=== PATIENT | female | born 1995 | race Caucasian/White ===

== ENCOUNTER 2016-08-12 10:59 | Emergency (ER) | payer BC ==
[~2016-08-12] VITALS: Ht 162.6 cm; Wt 57.6 kg
[~2016-08-12 10:59] MED LIST: AMOX500C3 PO; BCPILLS PO
[2016-08-12 11:03] VITALS: TEMP 36.9; Ht 162.6 cm; Wt 57.6 kg
[2016-08-12] MEDS ORDERED: DEXAMETHASONE CONC 1 MG/ML 30 ML PO STA ×2 (11:19→11:31)
[2016-08-12] MEDS ORDERED: FAMOTIDINE 20 MG TAB PO ONE (11:30)
[2016-08-12] MEDS ORDERED: CEPH500C PO (12:33)
[2016-08-12] MEDS ORDERED: CEPHALEXIN MONOHYDRATE 250 MG CAP PO ONE (12:45)
[2016-08-12 12:59] VITALS: BP 136/69; PULSE 74; O2SAT 99
--- NOTE | 2016-08-12 17:17 | EMERGENCY ROOM VISIT NOTE ---
History Report prepared by You: Hermilo Schwartz Under the Supervision of: Dr. Jack Barahona D.O. First contact with patient: 11:09 Chief Complaint: ALLERGIC REACTION Stated Complaint: TROUBLE BREATHING (ALLERGIC REACTION TO MACROBID) History of Present Illness The patient is a 20 year old female who presents to the Emergency Room with complaints of a constant allergic reaction starting last night around midnight when she took Macrobid. She states that she took Macrobid for a bladder infection starting two days ago, and last night she was having some shortness of breath and tightness in her chest. She states she went to sleep, and she woke up from not getting enough air while laying down, so she went back to sleep sitting upright. The patient states that she is sensitive to antibiotics, and she gets rashes to Bactrim and Malarone. She states that she additionally has a bicuspid aortic valve disease. She denies smoking, history of blood clots , hematemesis, recent long trips, and any trouble swallowing. Takes no estrogen. She denies any history of diabetes, hypertension, hyperlipidemia or CAD. She states that she does take control. The patient states that her last echo was in September, and it was normal. Pt denies headache, change in vision, fevers, nausea, vomiting, diarrhea, pain with urination, and melena. Source of History: patient Onset: last night around midnight Position: other (global) Quality: other (allergic reaction) Timing: constant Associated Symptoms: + SOB, + chest pain Review of Systems See HPI for pertinent positives & negatives. A total of 10 systems reviewed and were otherwise negative. Past Medical & Surgical Medical Problems: (1) (2) Bicuspid aortic valve Family History Heart disease Social History Smoking Status: Never Smoker Marital Status: single Housing Status: unknown Occupation Status: [email or web address] student Current/Historical Medications Scheduled Control Pills ( Control Pills), 1 TAB PO DAILY Cephalexin Monohydrate (Keflex), 500 MG PO QID Allergies Coded Allergies: Adhesives (Verified Allergy, Unknown, rash, 08/12/16) Atovaquone (Unverified Allergy, Unknown, rash all over , 08/12/16) Nitrofurantoin (Unverified Allergy, Unknown, difficulty breathing, chest feels heavy, 08/12/16) Proguanil (Unverified Allergy, Unknown, rash all over , 08/12/16) Sulfamethoxazole w/Trimethoprim (Unverified Allergy, Unknown, hives/ swelling, 08/12/16) Physical Exam Vital Signs Date Time Temp Pulse Resp B/P Pulse Ox O2 Delivery O2 Flow Rate FiO2 08/12/16 12:59 74 16 136/69 99 08/12/16 12:53 78 20 128/61 98 Room Air 08/12/16 12:05 73 16 111/77 97 Room Air 08/12/16 11:34 100 Room Air 08/12/16 11:03 36.9 88 18 136/92 100 Room Air Physical Exam GENERAL: Sitting up in bed, alert, well appearing, well nourished, no distress, non-toxic EYE EXAM: normal conjunctiva OROPHARYNX: no exudate, no erythema, lips, buccal mucosa, and tongue normal and mucous membranes are moist NECK: No stridor, supple, no nuchal rigidity, no adenopathy, non-tender LUNGS: Clear to auscultation. Normal chest wall mechanics HEART: Systolic murmur, S1 normal and S2 normal ABDOMEN: abdomen soft, non-tender, normo-active bowel sounds, no masses, no rebound or guarding. BACK: Back is symmetrical on inspection and there is no deformity, no midline tenderness, no CVA tenderness. SKIN: no rashes and no bruising UPPER EXTREMITIES: upper extremities are grossly normal. LOWER EXTREMITIES: Calves were equal bilaterally. No pitting edema. NEURO EXAM: Normal sensorium, cranial nerves II-XII grossly intact, normal speech, no gross weakness of arms, no gross weakness of legs. Gross sensation intact. Medical Decision & Procedures Medications Administered Medications (Trade) Dose Ordered Sig/Narciso Route Start Time Stop Time Status Last Admin Dose Admin Famotidine (Pepcid Tab) 20 mg NOW ONCE PO 08/12/16 11:30 08/12/16 11:31 DC 08/12/16 11:31 20 MG Diphenhydramine HCl (Benadryl Syrup) 50 mg NOW ONCE PO 08/12/16 11:30 08/12/16 11:31 DC 08/12/16 11:32 50 MG Dexamethasone (Decadron Conc Soln) 10 mg NOW STAT PO 08/12/16 11:31 08/12/16 11:32 DC 08/12/16 12:04 10 MG Cephalexin Monohydrate (Keflex Cap) 500 mg NOW ONCE PO 08/12/16 12:45 08/12/16 12:46 DC 08/12/16 12:53 500 MG ED Course ED COURSE: Vital signs were reviewed and showed normal vitals The patients medical record was reviewed The above diagnostic studies were performed and reviewed. ED treatments and interventions as stated above. 1109: The patient was evaluated in room C5. A complete history and physical examination was performed. The patient denies any blood work, EKG, and chest x- ray 1130: Benadryl Syrup 50mg PO, Pepcid Tab 20mg PO 1131: Decadron Conc Soln 10mg PO 1231: Upon reevaluation, the patient is feeling better.I discussed my findings with the patient and she understands and agrees with the treatment plan. Based on the patients age, coexisting illnesses, exam and lab findings the decision to treat as an outpatient was made. The patient remained stable while under my care. The patient appeared well at the time of discharge. 1245: Keflex Cap 500mg PO Medical Decision Differential diagnosis: Etiologies such as allergic reaction, anaphylaxis, urticaria, Vargas-Ozzy syndrome, toxic epidermal necrolysis, erythema multiforme, cellulitis, as well as others were entertained. Patient is a 11-year-old female who presents to the ER with concerns of an allergic reaction to Macrobid. She notes that she has felt short of breath since last night at 12 in the morning. She has no cardiac or PE risk factors with the exception of the bicuspid aortic valve which has been followed every year. I recommended blood work for her troponin and d-dimer along with an EKG and chest x-ray which she declined following informed refusal of care. I explained the risk and benefits of this. She understood and notes that she believes this to be only related to allergic reaction. She was given oral Benadryl, Decadron and famotidine as she declined an IV. She had resolution of her symptoms and was discharged follow-up with her primary care doctor/S. She was given a prescription for Keflex and instructed to stop taking the Macrobid. Discussed with Pt concerning signs and symptoms to watch out for. Pt was instructed to follow up with their PCP and discussed with the patient their option to return to the ED at anytime for persistent or worsening symptoms. The appropriate anticipatory guidance and out-patient management, including indications for return to the emergency department, were explained at length to the patient and understood. Impression Primary Impression: Allergic reaction Scribe Attestation The scribe's documentation has been prepared under my direction and personally reviewed by me in its entirety. I confirm that the note above accurately reflects all work, treatment, procedures, and medical decision making performed by me. Departure Information Dispostion Home / Self-Care Prescriptions Cephalexin Monohydrate (Keflex) 500 Mg Cap 500 MG PO QID for 4 Days, #16 CAP Prov: Jack Barahona, DO 08/12/16 Referrals No Doctor, Assigned (PCP) Forms HOME CARE DOCUMENTATION FORM, IMPORTANT VISIT INFORMATION Patient Instructions ED Allergic Reaction General Other, My [facility] Additional Instructions Please follow up with your primary care doctor or if you are a student [facility] services with in the next 24 hours. Any worsening of your symptoms, please return to the ED immediately. This includes fevers greater than 100.4, trouble breathing, trouble swallowing, no chest pain, passing out, or any other concerning signs or symptoms from your standpoint. Please stop taking Macrobid/your current antibiotic and start the Keflex which was given to you here. Problem Qualifiers Primary Impression: Allergic reaction Encounter type: initial encounter Qualified Codes: T78.40XA - Allergy, unspecified, initial encounter
== END 2016-08-12 13:01 | disposition home or self-care (01) ==
LOC: C.EDB 11:02 → C.EDC 13:01
DX: T78.40XA Allergy, unspecified, initial encounter (principal); X58.XXXA Exposure to other specified factors, initial encounter; Q23.1 Congenital insufficiency of aortic valve; Z79.3 Long term (current) use of hormonal contraceptives